=== PATIENT | female | born 1990 | race Caucasian/White ===

== ENCOUNTER 2022-08-19 18:32 | Emergency (ER) | payer MEDICAID, SELFPAY ==
[2022-08-19 18:39] VITALS: BP 143/91; PULSE 105; RESP 16; TEMP 37; O2SAT 96
--- NOTE | 2022-08-19 18:48 | ED.GENADUL_ITS ---
Discharge Plan Disposition Patient Disposition: HOME Condition: Improving Discharge Details Clinical Impression: Mild sprain of left ankle Primary Care Provider: None,None ED Provider: Josh Fontaine Home Meds and New Rx's Prescriptions: Continued methadone 10 mg/mL Solution 115 mg DAILY Discharge Instructions Instructions: Ankle Sprain (ED) Additional Instructions: May resume normal routine and activities. Return to ER for any acute concerns. Stand Alone Forms: Work Release Medical Decision Making 32-year-old female presents complaining of suffering a mild left ankle sprain this past Saturday. She had some swelling after working and took 3 days off of work. Now improved, ambulatory and without pain or swelling. She wishes to have a work note clearing her for return to full duty. No indication for imaging in my opinion given her return to normal. She is stable and appropriate for discharge HPI General Mode of arrival: ambulatory . Date/Time Provider Initiated Documentation: 08/19/22 18:34 . Limitations to Documentation: no limitations . Information obtained by: patient . History of Present Illness 32 year old F presents to the emergency department with the chief complaint of Left ankle sprain, improving, described as mild, and is localized to the left and lower extremity. Patient reports no radiation. Patient started experiencing this day(s) and it has been now resolved. No relieving factors improve symptom(s), No exacerbating factors reported . Patient notes no other symptoms.. Patient did receive the following treatments prior to arrival, none Related Data Home Medications Medication Instructions Recorded Confirmed methadone 10 mg/mL injection 115 mg DAILY 08/19/22 08/19/22 solution Allergies Allergy/AdvReac Type Severity Reaction Status Date / Time No Known Allergies Allergy Unverified 08/19/22 18:43 General Stated Complaint: Orthopedic MEGHANA: 4 Review of Systems Narrative: No other injury, no knee pain, ambulatory. 4 systems reviewed and otherwise negative PFSH All Active Problems (Updated 08/19/22 @ 18:51 by Josh Fontaine MD) Mild sprain of left ankle (Acute) Social History Smoking/Tobacco Use Status: Current every day Tobacco Type: cigarettes Smoking risk assessment performed?: Yes Alcohol Intake: never Substance use type: does not use Exam Narrative Exam Narrative: GEN: awake, alert, oriented 3. Pleasant, well groomed, interactive. HEAD: Normocephalic, atraumatic EYES: PERRL, EOMI NECK: Full ROM, no AD, no menigismus CHEST/RESP: No respiratory distress EXT: Full ROM, no edema, no rash Neuro: Grossly normal neurologic exam, conversant, interactive. Psych: Speech fluent, thoughts congruent, affect normal Course Vital Signs Vital signs: Vital Signs Temperature 37 C 08/19/22 18:39 Pulse 105 H 08/19/22 18:39 Respiratory Rate 16 08/19/22 18:39 Blood Pressure 143/91 H 08/19/22 18:39 Pulse Oximetry 96 08/19/22 18:39 Temperature 37 C 08/19/22 18:39 Temperature Source Tympanic 08/19/22 18:39 Pulse 105 H 08/19/22 18:39 Respiratory Rate 16 08/19/22 18:39 Respiratory Effort 08/19/22 18:39 Blood Pressure 143/91 H 08/19/22 18:39 Blood Pressure Position Sitting 08/19/22 18:39 Pulse Oximetry 96 08/19/22 18:39 Oxygen Delivery Method Room Air 08/19/22 18:39 Oxygen Flow Rate 0 08/19/22 18:39 Pain Level 2 08/19/22 18:39
== END 2022-08-19 18:56 | disposition home or self-care (01) ==
PROVIDERS: Emergency Provider Emergency Medicine
DX: S93.402A Sprain of unspecified ligament of left ankle, initial encounter (principal); X50.9XXA Other and unspecified overexertion or strenuous movements or postures, initial encounter
CPT/HCPCS: 99281; 99282

== ENCOUNTER 2022-11-27 06:40 | Emergency (ER) | payer SELFPAY ==
--- NOTE | 2022-11-27 06:45 | RT.EKG_ITS ---
APPROVED REPORT Exam: Resting ECG Reason for Exam: Dizzyness Patient Location: E HR:54 bpm ECG Measurements Heart Rate 54 AXIS MN 120 P 59 QRSd 184 QRS 100 QT 462 T -5 QTc 440 Conclusion Sinus bradycardia...rate< 60 Nonspecific intraventricular conduction delay...QRSd >115mS, not LBBB/RBBB Borderline ST depression, diffuse leads...ST <-0.07mV, ant/lat/inf Physician: negative sgarbossa
[2022-11-27 07:02] VITALS: BP 133/97; PULSE 72; RESP 18; TEMP 36.4; O2SAT 99
--- NOTE | 2022-11-27 07:23 | W.ED.GENAD ---
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 She denies any hematemesis or hematochezia. She does admit to intermittent diarrhea. She denies any melena. She states that her headache is mild in nature, achy and in the front of the head. No neck pain, fever or chills. She denies any room spinning sensation. She denies any significant vision changes otherwise. Physical exam demonstrates dry mucous membranes, nontender abdomen, no focal neurologic deficits or horizontal nystagmus or vertical or rotatory nystagmus. We will rehydrate, check labs, monitor closely and reassess. HPI General Date/Time Provider Initiated Documentation: 11/27/22 06:57. 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 She denies any hematemesis or hematochezia. She does admit to intermittent diarrhea. She denies any melena. She states that her headache is mild in nature, achy and in the front of the head. No neck pain, fever or chills. She denies any room spinning sensation. She denies any significant vision changes otherwise. Related Data Home Medications Medication Instructions Recorded Confirmed methadone 10 mg/mL injection 115 mg DAILY 08/19/22 08/19/22 solution Allergies Allergy/AdvReac Type Severity Reaction Status Date / Time No Known Allergies Allergy Unverified 08/19/22 18:43 General Stated Complaint: Nausea/Vomit/Diar MEGHANA: 3 Review of Systems All systems reviewed & are unremarkable except as noted in HPI and below [facility] Social History Smoking/Tobacco Use Status: Current every day Tobacco Type: cigarettes Smoking risk assessment performed?: Yes Alcohol Intake: never Substance use type: does not use Exam Narrative Exam Narrative: 1.Const: Well-nourished, Well-developed, appearing stated age 2.Eyes: PERRL, no conjunctival injection, and symmetrical lids. No horizontal or vertical or rotatory nystagmus. 3.ENT: Atraumatic external nose and ears. Notably dry MM. Neck: Symmetric, trachea midline, No thyromegaly. 4.CVS: +S1/S2, No murmurs or gallops. Peripheral pulses 2+ and equal in all extremities. Brisk capillary refill in all extremities. 5.RESP: Unlabored respiratory effort. Clear to auscultation bilaterally. No wheezes rales or rhonchi 6.GI: Soft, Nontender/Nondistended, No hepatosplenomegaly. No guarding or rebound. 7.MSK: Normocephalic/Atraumatic, Extremities w/o deformity or ttp No cyanosis or clubbing, Normal movement of all extremities 8.Skin: Warm, Dry. No rashes or lesions. 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 Sensation grossly intact, no focal neurologic deficits. All 6 cardinal planes of vision are fully intact. No evidence of rotatory or vertical nystagmus. The patient demonstrated a normal [id number], good dexterity. There was no evidence of dysdiadochokinesia. Patient was able to ambulate without difficulty. There was no wide-based gait. Romberg testing was normal. Jlrr-[id number]-[id number] testing was normal. Sensation was intact bilaterally as well as muscle strength bilaterally for all extremities. Patient was able to verbalize butter cup with no slurring, or miss pronunciation. 10.Psych: (AAO) x3. Appropriate mood and affect Course Vital Signs Vital signs: Vital Signs Temperature 36.4 C L 11/27/22 07:02 Pulse 72 11/27/22 07:02 Respiratory Rate 18 11/27/22 07:02 Blood Pressure 133/97 H 11/27/22 07:02 Pulse Oximetry 99 11/27/22 07:02 Temperature 36.4 C L 11/27/22 07:02 Temperature Source Temporal Artery Scan 11/27/22 07:02 Pulse 72 11/27/22 07:02 Respiratory Rate 18 11/27/22 07:02 Blood Pressure 133/97 H 11/27/22 07:02 Blood Pressure Position Sitting 11/27/22 07:02 Pulse Oximetry 99 11/27/22 07:02 Oxygen Delivery Method Room Air 11/27/22 07:02 Oxygen Flow Rate 0 11/27/22 07:02
[2022-11-27 07:47] LABS: Abs Immature Grans 0.09 10^3/uL (0.0-0.06); Absolute Basophil Count 0.03 10^3/uL (0.0-0.2); Absolute Eosinophil Count 0.19 10^3/uL (0.0-0.7); Absolute Lymphocyte Count 2.27 10^3/uL (1.2-3.4); Absolute Monocyte Count 0.54 10^3/uL (0.1-0.8); Absolute Neutrophil Count 3.03 10^3/uL (1.2-6.7); Basophils % 0.5; Eosinophils % 3.1; HCT 43.9 % (36.0-46.0); HGB 14.7 g/dL (11.2-15.7); Immature Grans % 1.5; Lymphocytes % 36.9; MCH 29.6 pg (27.0-33.0); MCHC 33.5 % (32.0-36.0); MCV 88 fL (80-95); MPV 9.7 fL (8.0-11.0); Monocytes % 8.8; Neutrophils % 49.2; Platelet Count 267 10^3/uL (130-400); RBC 4.97 10^6/uL (3.93-5.22); RDW 12.3 % (11.7-14.6); RDW-SD 39.8 fL; WBC 6.15 10^3/uL (4.4-10.8)
[2022-11-27] MEDS: Normal Saline 1,000 ML 1000 ML IV (07:55)
[2022-11-27] MEDS: Ondansetron 4 MG/2 ML VIAL IVP (08:03)
[2022-11-27 08:07] LABS: Bilirubin Negative (Negative); Blood Trace-intact (Negative); Clarity Cloudy (Clear); Glucose Negative (Negative); Ketones Negative (Negative); Leukocyte Esterase Negative (Negative); Nitrite Positive (Negative); Specific Gravity >= 1.030 (1.005-1.025); Urobilinogen 0.2 EU/dL (Up TO 0.2)
[2022-11-27 08:15] LABS: Bacteria Many HPF (Negative); C & S Indicated? No/Sq. Contamination; Casts Negative LPF (Negative); Crystals Negative HPF (Negative); Epithelial Cells Many HPF (Negative); Mucus Trace (Negative); RBC 0-2 HPF (0-2); WBC 0-2 HPF (0-5)
[2022-11-27 08:17] LABS: ALT 26 U/L (14-59); AST 19 U/L (15-37); Albumin 3.8 g/dL (3.4-5.0); Alkaline Phosphatase 89 U/L (46-116); Anion Gap 8.6 mmol/L (3-11); BUN 13 mg/dL (7-18); Bilirubin, Total 0.4 mg/dL (0.2-1.0); CO2 27.4 mmol/L (21.0-32.0); CREATININE 0.8 mg/dL (0.55-1.02); Calcium 9.1 mg/dL (8.5-10.1); Chloride 105 mmol/L (98-107); Estimated GFR 99.71 (mL/min/1.73m2); Glucose 92 mg/dL (74-106); Lipase 18 U/L (16-77); Potassium 3.8 mmol/L (3.5-5.1); Sodium 141 mmol/L (136-145); Total Protein 7.4 g/dL (6.4-8.2)
[2022-11-27 08:28] LABS: COVID-19 PCR Negative (Negative); Influenza A PCR Negative (Negative); Influenza B PCR Negative (Negative); RSV PCR Negative (Negative)
[2022-11-27 08:36] LABS: Source Nasopharynx
--- NOTE | 2022-11-27 08:51 | W.EDPROG ---
Date of service: 11/27/22 Time of Service: 08:52 Medical Decision Making pt's labs unremarkable other than positive for nitrites. She denies urinary symptoms but given she is positive for this will treat for possible uti, no fevers and no cva tenderness so doubt pyelo. She feels much better after iv fluids and is tolerating po, no abdominal tenderness. Do not feel further testing or interventions indicated, will provide prn zofran and advised to f/u with pcp if not improving, return precautions given Sign Out Sign Out Data: Sign Out Comment: Weak, dizzy, getting fluids reassess after labs Last updated by Chucho Barker DO at 11/27/22 08:06 Discharge Plan Disposition Patient Disposition: Home Condition: Stable Discharge Details Clinical Impression: Nausea & vomiting Primary Care Provider: Unknown,Unknown ED Provider: Abel Parisi Home Meds and New Rx's Prescriptions: New ondansetron 4 mg tablet,disintegrating 4 mg PO Q8H PRN (Reason: nausea and vomiting) Qty: 30 0RF No Action methadone 10 mg/mL Solution 115 mg DAILY Rx Instructions: no longer takes. 11/27/22 Discharge Instructions Instructions: Acute Nausea and Vomiting (ED) Additional Instructions: if not better within a week follow up with your primary care provider if you feel more ill, have persistent vomiting despite medication or severe pain return to the emergency department Stand Alone Forms: Work Release
[2022-11-27] MEDS: Fosfomycin Tromethamine 3 GM PACKET PO (09:12)
[2022-11-27 09:21] VITALS: BP 144/89; PULSE 51; RESP 18; O2SAT 99
== END 2022-11-27 09:21 | disposition home or self-care (01) ==
PROVIDERS: Student in an Organized Health Care Education/Training Program; Emergency Provider Emergency Medicine
DX: R11.2 Nausea with vomiting, unspecified (principal); R42 Dizziness and giddiness; R51.9 Headache, unspecified; R19.7 Diarrhea, unspecified; Z20.822 Contact with and (suspected) exposure to COVID-19
CPT/HCPCS: 36415; 80053; 81025; 83690; 87637; 93005; 96361; 96374; 99284; 81003; 81015; 85025; 93010; J2405; J3490

== ENCOUNTER 2023-06-24 18:13 | Emergency (ER) | payer SELFPAY ==
[2023-06-24 18:15] VITALS: BP 114/73; PULSE 109; RESP 16; TEMP 37.1; O2SAT 95
[2023-06-24 18:52] LABS: Bilirubin Small (Negative); Blood Trace-lysed (Negative); Clarity Cloudy (Clear); Glucose Negative (Negative); Ketones Negative (Negative); Leukocyte Esterase Moderate (Negative); Nitrite Negative (Negative); pH 5.5 (5-8)
[2023-06-24 19:06] LABS: Bacteria Many HPF (Negative); C & S Indicated? No/Sq. Contamination; Casts Negative LPF (Negative); Crystals Negative HPF (Negative); Epithelial Cells Many HPF (Negative); Mucus Trace (Negative); RBC 0-2 HPF (0-2); WBC 20-50 HPF (0-5)
[2023-06-24 19:18] LABS: COVID-19 PCR Negative (Negative); Influenza A PCR Negative (Negative); Influenza B PCR Negative (Negative); RSV PCR Negative (Negative)
--- NOTE | 2023-06-24 19:21 | W.ED.GENAD ---
Discharge Plan Disposition Patient Disposition: Home Condition: Improving Discharge Details Clinical Impression: UTI (urinary tract infection) Primary Care Provider: Unknown,Unknown ED Provider: Shay Catherine Home Meds and New Rx's Prescriptions: New cefpodoxime 100 mg tablet 100 mg PO BID 7 Days Qty: 14 0RF Rx Instructions: must administer with a meal/food No Action methadone 10 mg/mL Solution 115 mg DAILY Rx Instructions: no longer takes. 11/27/22 ondansetron 4 mg tablet,disintegrating 4 mg PO Q8H PRN (Reason: nausea and vomiting) Qty: 30 0RF Discharge Instructions Instructions: Urinary Tract Infection in Women (ED) Medical Decision Making 33-year-old female presents with body aches nausea vomiting cough sore throat over the past day. Afebrile nontoxic, mildly tachycardic on arrival no respiratory distress. Oropharynx unremarkable. Nonperitoneal. Likely viral syndrome must also consider viral gastroenteritis versus viral pharyngitis, no exudate or erythema of oropharynx to suggest strep pharyngitis. Must also consider UTI. Will obtain urine test UA, COVID swab, trial of dexamethasone and Zofran close reassessment. 30: 59 evidence of UTI. COVID-negative. Patient feeling better after medications. Will start on antibiotics. HPI General Date/Time Provider Initiated Documentation: 06/24/23 18:26. HPI Narrative: 33-year-old female presents with body aches sore throat cough nausea vomiting Related Data Home Medications Medication Instructions Recorded Confirmed methadone 10 mg/mL injection 115 mg DAILY 08/19/22 06/24/23 solution ondansetron 4 mg disintegrating 4 mg PO Q8H PRN nausea and 11/27/22 06/24/23 tablet vomiting #30 tabs cefpodoxime 100 mg tablet 100 mg PO BID 7 days #14 tabs 06/24/23 Previous Rx's Medication Instructions Recorded ondansetron 4 mg disintegrating 4 mg PO Q8H PRN nausea and 11/27/22 tablet vomiting #30 tabs cefpodoxime 100 mg tablet 100 mg PO BID 7 days #14 tabs 06/24/23 Allergies Allergy/AdvReac Type Severity Reaction Status Date / Time No Known Allergies Allergy Unverified 06/24/23 20:01 General Stated Complaint: Nausea/Vomit/Diar MEGHANA: 3 Review of Systems Narrative: Review of Systems Constitutional: negative Eyes: negative ENT: negative Cardiovascular: negative Respiratory: Cough Gastrointestinal: Nausea : negative Musculoskeletal: negative Skin: negative Neurologic: negative Psych: negative PFSH All Active Problems (Updated 06/24/23 @ 19:59 by Shay Catherine MD) UTI (urinary tract infection) (Acute) Social History Smoking/Tobacco Use Status: Current every day Tobacco Type: cigarettes Smoking risk assessment performed?: Yes Alcohol Intake: never Substance use type: former substance user Do you feel safe at home: Yes Do you feel safe in your relationship?: Yes Exam Narrative Exam Narrative: Physical Examination General: alert, awake, cooperative, resting comfortably, no acute distress HEENT: normocephalic, atraumatic; PERRL, EOM intact, conjunctiva normal; no nasal discharge; moist mucous membranes, oral and pharyngeal mucosa normal, tolerating secretions Neck: supple, trachea midline; full ROM Chest: normal to inspection Respiratory: normal respiratory effort, speaking in full sentences, clear to auscultation, no wheezing, rales or rhonchi Cardiac: regular rate, regular rhythm, S1S2 intact, no murmurs rubs or gallops GI: abdomen soft, non-tender, non-distended; no palpable mass or hepatosplenomegaly Skin: no lesions, rashes or trauma appreciated Neuro: AAOx3, normal speech, moving all extremities Psych: Appropriate mood and affect Course Vital Signs Vital signs: Vital Signs Temperature 37.1 C 06/24/23 18:15 Pulse 109 H 06/24/23 18:15 Respiratory Rate 16 06/24/23 18:15 Blood Pressure 114/73 06/24/23 18:15 Pulse Oximetry 95 06/24/23 18:15 Temperature 37.1 C 06/24/23 18:15 Temperature Source Skin 06/24/23 18:15 Pulse 109 H 06/24/23 18:15 Respiratory Rate 16 06/24/23 18:15 Blood Pressure 114/73 06/24/23 18:15 Blood Pressure Position Sitting 06/24/23 18:15 Pulse Oximetry 95 06/24/23 18:15 Oxygen Delivery Method Room Air 06/24/23 18:15 Oxygen Flow Rate 0 06/24/23 18:15 Pain Level 7 06/24/23 18:15 Comment took ibuprofen for headache around 4pm today 06/24/23 18:15 Lab/Test Results Lab/Test Results: 06/24/23 18:21 Tonsil - Not Specified Group A Streptococcus Culture - Pending Laboratory Tests Range/Units 06/24/23 06/24/23 18:21 18:47 Urine Color (Yellow) Yellow Urine Clarity (Clear) Cloudy Urine pH (5-8) 5.5 Ur Specific [place] (1.005-1.025) 1.020 Urine Protein (Negative) mg/dL Negative Urine Ketones (Negative) mg/dL Negative Urine Blood (Negative) Trace-lysed H Urine Nitrite (Negative) Negative Urine Bilirubin (Negative) Small H Urine Urobilinogen (Up to 0.2) mg/dL 1.0 H Ur Leukocyte Esterase (Negative) Moderate H Urine RBC (0-2) HPF 0-2 Urine WBC (0-5) HPF 20-50 H Ur Epithelial Cells (Negative) HPF Many Urine Crystals (Negative) HPF Negative Urine Bacteria (Negative) HPF Many Urine Casts (Negative) LPF Negative Urine Mucus (Negative) Trace Ur Culture Indicated? No/Sq. Contamination Urine Glucose (Negative) mg/dL Negative COVID-19 Source NASOPHRYNX SARS-CoV-2 (PCR) (Negative) Negative Influenza Type A (PCR) (Negative) Negative Influenza Type B (PCR) (Negative) Negative RSV (PCR) (Negative) Negative POC- Test(urine) Negative POC Strep Test-ENMANUEL(Rapid) Start: 06/24/23 18:25 Freq: Status: Active Protocol: Document 06/24/23 18:32 DAWNA (Rec: 06/24/23 18:32 DAWNA [id number]) Strep test-ENMANUEL(Rapid)-POC POC-Strep test-ENMANUEL (Rapid) Negative POC-Strep test-ENMANUEL (Rapid) Negative
[2023-06-24] MEDS: Ondansetron O.D.T. 4 MG TABEF SL (19:49)
[2023-06-24] MEDS: Dexamethasone 10 MG/ML VIAL PO (19:50)
[2023-06-24] MEDS: Cefpodoxime 200 MG TAB PO (19:58)
== END 2023-06-24 20:25 | disposition home or self-care (01) ==
PROVIDERS: Emergency Provider Emergency Medicine
DX: N39.0 Urinary tract infection, site not specified (principal)
CPT/HCPCS: 81025; 87637; 87880; 99283; 81003; 81015; 87081; 99284; J1100